=== PATIENT | female | born 2005 | race Caucasian/White ===

== ENCOUNTER 2023-08-13 08:00 | Outpatient (CLI) | payer OTHER | END 2023-08-13 08:01 | disposition home or self-care (01) | LOC: PET 08:00 | PROVIDERS: ATTEND Internal Medicine Hematology & Oncology | DX: C43.61 Malignant melanoma of right upper limb, including shoulder (principal) | CPT/HCPCS: 78816; A9552 ==

== ENCOUNTER 2023-08-14 09:05 | Outpatient (CLI) | payer OTHER | END 2023-08-14 09:06 | disposition home or self-care (01) | LOC: MRI 09:05 | PROVIDERS: ATTEND Internal Medicine Hematology & Oncology | DX: C43.9 Malignant melanoma of skin, unspecified (principal); C77.9 Secondary and unspecified malignant neoplasm of lymph node, unspecified | CPT/HCPCS: 70553 ==

== ENCOUNTER 2024-02-18 08:09 | Outpatient (CLI) | payer OTHER | END 2024-02-18 08:10 | disposition home or self-care (01) | LOC: CT 08:09 | PROVIDERS: ATTEND Internal Medicine Hematology & Oncology | DX: C43.61 Malignant melanoma of right upper limb, including shoulder (principal) | CPT/HCPCS: 71260; 74177 ==